=== PATIENT | female | born 1970 | race Caucasian/White ===

== ENCOUNTER 2016-10-21 20:40 | Emergency (ER) | payer SELFPAY ==
--- NOTE | 2016-10-21 22:19 | Emergency Department Record ---
History of Present Illness - General Chief complaint: Pain Stated complaint: R WRIST PAIN Time Seen by Provider: 10/21/16 22:14 Source: Patient Mode of Arrival: Ambulatory Limitations: No limitations - History of Present Illness Initial comments: pt injured wrist a week ago and it continues to hurt. mechanism unknown. MD Complaint: Extremity pain, Extremity swelling Onset/Timin -: Week(s) Location: Right Radiation: None Severity scale (1-10): 7 Consistency: Constant, Getting worse Improves with: Immobilization Worsens with: Exertion, Palpation Associated Symptoms: Denies other symptoms - Related Data Allergies Allergy/AdvReac Type Severity Reaction Status Date / Time No Known Drug Allergies Allergy Verified 04/22/15 12:35 Travel Screening - Travel/Exposure Within Last 30 Days Have you traveled within the last 30 days?: No Review of Systems Reviewed: No additional complaints except as noted below Constitutional: Reports: As per HPI. Denies: Chills, Fever, Malaise, Night sweats, Weakness, Weight change Eyes: Reports: As per HPI. Denies: Eye discharge, Eye pain, Photophobia, Vision change ENT: Reports: As per HPI. Denies: Congestion, Dental pain, Ear pain, Epistaxis , Hearing loss, Throat pain Respiratory: Reports: As per HPI. Denies: Cough, Dyspnea, Hemoptysis, Stridor, Wheezes Cardiovascular: Reports: As per HPI. Denies: Arrhythmia, Chest pain, Dyspnea on exertion, Edema, Murmurs, Orthopnea, Palpitations, Paroxysmal nocturnal dyspnea, Rheumatic Fever, Syncope Endocrine: Reports: As per HPI. Denies: Fatigue, Heat or cold intolerance, Polydipsia, Polyuria Gastrointestinal: Reports: As per HPI. Denies: Abdominal pain, Constipation, Diarrhea, Hematemesis, Hematochezia, Melena, Nausea, Vomiting Genitourinary: Reports: As per HPI. Denies: Abnormal menses, Discharge, Dyspareunia, Dysuria, Frequency, Hematuria, Incontinence, Retention, Urgency Musculoskeletal: Reports: As per HPI. Denies: Arthralgia, Back pain, Gout, Joint swelling, Myalgia, Neck pain Skin: Reports: As per HPI. Denies: Bruising, Change in color, Change in hair/ nails, Lesions, Pruritus, Rash Neurological: Reports: As per HPI. Denies: Abnormal gait, Confusion, Headache, Numbness, Paresthesias, Seizure, Tingling, Tremors, Vertigo, Weakness Psychiatric: Reports: As per HPI. Denies: Anxiety, Auditory hallucinations, Depression, Homicidal thoughts, Suicidal thoughts, Visual hallucinations Hematological/Lymphatic: Reports: As per HPI. 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 - Hx Genitourinary Disorders: No - ENDOCRINE Hx Endocrine Disorders: No - MUSCULOSKELETAL Hx Musculoskeletal Disorders: No - PSYCH Hx Psych Problems: No - HEMATOLOGY/ONCOLOGY Hx Hematology/Oncology Disorders: No Family Medical History Any Significant Family History?: Yes Hx Cancer: Father Hx Dementia: Grandparents *Dementia Comment: Alzheimers Hx Heart Disease: Grandparents Physical Exam - General General Appearance: Alert, Oriented x3, Cooperative, Mild distress - Head Head exam: Normal inspection - Eye Eye exam: Normal appearance, PERRL, EOMI Pupils: Normal accommodation - ENT ENT exam: Normal exam, Mucous membranes moist, Normal external ear exam, Normal orophraynx Ear exam: Normal external inspection. negative: External canal tenderness Nasal Exam: Normal inspection. negative: Discharge, Sinus tenderness Mouth exam: Normal external inspection, Tongue normal Teeth exam: Normal inspection. negative: Dental caries Throat exam: Normal inspection. negative: Tonsillar erythema, Tonsillar exudate - Neck Neck exam: Normal inspection, Full ROM. negative: Tenderness - Respiratory Respiratory exam: Normal lung sounds bilaterally. negative: Respiratory distress - Cardiovascular Cardiovascular Exam: Regular rate, Normal rhythm, Normal heart sounds - GI/Abdominal GI/Abdominal exam: Soft, Normal bowel sounds. negative: Tenderness - Rectal Rectal exam: Deferred - exam: Deferred - Extremities Extremities exam: Normal inspection, Full ROM, Normal capillary refill, Tenderness, Other (ganglion cyst) - Back Back exam: Reports: Normal inspection, Full ROM. Denies: Muscle spasm, Rash noted, Tenderness - Neurological Neurological exam: Alert, CN II-XII intact, Normal gait, Oriented X3 - Psychiatric Psychiatric exam: Normal affect, Normal mood - Skin Skin exam: Dry, Intact, Normal color, Warm Course Vital Signs 06/20/17 21:38 Temperature 98 F Pulse Rate [ 55 L Pulse Ox Probe] Respiratory 20 Rate Blood Pressure 123/87 [Left Arm] Pulse Ox 100 Disposition Disposition: Discharge Clinical Impression: Ganglion cyst Disposition: Home, Self-Care Condition: (1) Good Instructions: Ganglion Cysts (ED), Wrist Injury (ED) Additional Instructions: follow up with family doctor. rest. return sooner if worse Forms: Patient Portal Access, Return to Work/School
--- NOTE | 2016-10-23 10:22 | RADIOLOGY REPORT ---
EXAM: RIGHT WRIST HISTORY: WRIST PAIN. TECHNIQUE: Four views of the right wrist were obtained. Comparison: None. Encounter: Initial. FINDINGS: Negative for an acute fracture or dislocation. The soft tissues are unremarkable. The joint spaces are preserved. IMPRESSION: NEGATIVE RIGHT WRIST EXAMINATION. JOB NUMBER: [id number] MTDD
== END 2016-10-21 23:07 | disposition home or self-care (01) ==
LOC: ER 20:40
DX: M67.431 Ganglion, right wrist (principal)
CPT/HCPCS: 99283

== ENCOUNTER 2017-02-12 09:35 | Emergency (ER) | payer OTHER ==
--- NOTE | 2017-02-12 09:59 | Emergency Department Record ---
History of Present Illness - General Chief complaint: Rash Stated complaint: ALLERGIC REACTION Time Seen by Provider: 02/12/17 09:59 Source: Patient Mode of Arrival: Ambulatory Limitations: No limitations - History of Present Illness Initial comments: The patient is here due to an itchy rash all over for the last 2 days. She did receive a flu shot 3 days ago but has never had any rxn to it. She also denies any ST, cough, runny nose, fever, chills, nausea, vomiting, or diarrhea. The patient denies any new medicines, foods, pets, recent travel, or sick contacts. She states she feels very well and denies any recent illnesses. MD complaint: Rash Onset/Timin -: Hour(s) Location: Generalized Worsens with: Medication Associated symptoms: Itching Treatments Prior to Arrival: Benadryl - Related Data Previous Rx's Medication Instructions Recorded Prednisone [Prednisone 20Mg] 40 mg PO DAILY #10 tab 02/12/17 Allergies Allergy/AdvReac Type Severity Reaction Status Date / Time No Known Drug Allergies Allergy Verified 04/22/15 12:35 Travel Screening - Travel/Exposure Within Last 30 Days Have you traveled within the last 30 days?: No - Travel/Exposure Within Last Year Have you traveled outside the [place] 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 negative: Tonsillar erythema, Tonsillar exudate - Neck Neck exam: Normal inspection, Full ROM. negative: Tenderness - Respiratory Respiratory exam: Normal lung sounds bilaterally. negative: Respiratory distress - Cardiovascular Cardiovascular Exam: Regular rate, Normal rhythm, Normal heart sounds - Extremities Extremities exam: Normal inspection, Full ROM, Normal capillary refill. negative: Tenderness - Skin Skin exam: Rash (There are scattered very slightly erythematous papules to the arms, legs, and trunk. They are not tender and do not appear vesicular. The rash does not involve the palms, soles, or oral mucosa.). negative: Erythema, Urticaria Course Vital Signs 02/12/17 09:38 Temperature 97.5 F L Pulse Rate 71 Respiratory 16 Rate Blood Pressure 115/67 Pulse Ox 96 - Reevaluation(s) Reevaluation #1: I did explain to the patient that it appears the rash is nothing dangerous at this time. She is to continue the Benadryl and use the prednisone if not better in 2 days or if worsening. 02/12/17 10:08 Disposition Disposition: Discharge Clinical Impression: Skin rash Disposition: Home, Self-Care Condition: (1) Good Instructions: Acute Rash (ED) Additional Instructions: Please continue the Benadryl and use the Prednisone if not better in 2 days. Please see your PCP if not better by Thursday and return to the ER if worse. Prescriptions: Prednisone [Prednisone 20Mg] 40 mg PO DAILY #10 tab Forms: Patient Portal Access Time of Disposition: 10:10 Quality - Quality Measures Quality Measures: N/A - Blood Pressure Screening View Details: Yes Does Patient Have Any of the Following: No Blood Pressure Classification: Normal BP Reading Systolic Measurement: 115 Diastolic Measurement: 67 Screening for High Blood Pressure: < Normal BP, F/U Not Required > [G8783]
== END 2017-02-12 10:34 | disposition home or self-care (01) ==
LOC: ER 09:35
DX: R21 Rash and other nonspecific skin eruption (principal)
CPT/HCPCS: 99282